=== PATIENT | female | born 1955 | race Two or more races ===

== ENCOUNTER 2025-04-28 11:20 | Emergency (ER) | payer MEDICARE, SELFPAY ==
[2025-04-28 11:36] VITALS: BP 107/71; PULSE 68; RESP 17; TEMP 36.6; O2SAT 96; BMI 32.9
--- NOTE | 2025-04-28 11:39 | PD.EDADULT ---
ED General RME/HPI General Chief complaint: General Adult/Misc Complain Stated complaint: R/O DVT R) LEG; SENT BY [facility] Time Seen by Provider: 04/28/25 11:39 Arrival date/time: 04/28/25 11:20 Related Data Previous Rx's ?Medication ?Instructions ?Recorded meloxicam 7.5 mg tablet 7.5 mg PO QDAY #10 tabs 09/09/24 Allergies Allergy/AdvReac Type Severity Reaction Status Date / Time No Known Allergies Allergy Verified 04/28/25 11:24 Course Vital Signs Vital signs: Vital Signs Temperature 97.8 F 04/28/25 11:36 Pulse Rate 68 04/28/25 11:36 Respiratory Rate 17 04/28/25 11:36 Blood Pressure 107/71 04/28/25 11:36 Pulse Oximetry (%) 96 04/28/25 11:36 Oxygen Delivery Method Room Air 04/28/25 11:36 Discharge Plan Prescriptions/Referrals Prescriptions/Med Rec: No Action meloxicam 7.5 mg tablet 7.5 mg PO QDAY Qty: 10 0RF Patient/Caregiver Discharge Instructions Print Language: Lithuanian
--- NOTE | 2025-04-28 11:41 | XR_ITS ---
Examination: Duplex scan of the lower extremity, unilateral right complete Date and time of exam: April 28, 2025 1222 hours INDICATIONS: Status post venous ablation April 21, 2025 followed by a leg swelling and burning sensation 3 days Technique: Duplex scan of the extremity veins using B-mode/grayscale imaging and Doppler spectral analysis and color flow Attention is directed to internal echogenicity, compression and augmentation involving these veins, color flow assessment, spectral analysis Findings: Major deep venous structures in the extremity demonstrate normal course and caliber. There is no evidence of deep vein thrombosis. Normal color flow and spectral analysis Positive for deep vein thrombus in the superficial greater saphenous vein Impression: Negative for DVT.. Positive for deep vein thrombus in the superficial greater saphenous vein
--- NOTE | 2025-04-28 13:08 | PD.EDRME ---
Rapid Medical Screening Exam RME Arrival date/time: 04/28/25 11:20 69-year-old female presents to the emerged part today for concerns for right lower extremity pain and swelling patient was sent by specialist to rule out DVT Chief Complaint: General Adult/Misc Complain Time Seen by Provider: 04/28/25 11:39 Vital signs: Vital Signs Temperature 97.8 F 04/28/25 11:36 Pulse Rate 68 04/28/25 11:36 Respiratory Rate 17 04/28/25 11:36 Blood Pressure 107/71 04/28/25 11:36 Pulse Oximetry (%) 96 04/28/25 11:36 Oxygen Delivery Method Room Air 04/28/25 11:36
[2025-04-28 13:40] LABS: Basophils % (Auto) 0 % (0-2.5); Eosinophils # (Auto) 0.2 Thou/mm3 (0.0-0.5); Eosinophils % (Auto) 3 % (0-10); Hematocrit 39.1 % (36.0-46.0); Hemoglobin 12.7 g/dL (12.0-16.0); Immature Granulocytes % (Auto) 0 % (0-0); Immature Granulocytes Auto 0.02 Thou/mm3 (0.00-0.00); Lymphocytes % (Auto) 27 % (10-50); Mean Corpuscular HGB Conc 32.5 g/dl (31.0-37.0); Mean Corpuscular Hemoglobin 28.5 pg (25.0-35.0); Mean Corpuscular Volume 88 fL (80-100); Monocytes # (Auto) 0.5 Thou/mm3 (0.0-0.8); Monocytes % (Auto) 6 % (0-12); Neutrophils # (Auto) 4.8 Thou/mm3 (1.8-7.7); Neutrophils % (Auto) 63 % (37-80); Nucleated Red Blood Cell % 0 /100 WBC (0); Platelet Count 162 Thou/mm3 (140-440); RDW Standard Deviation 41.9 fL (36.4-46.3); Red Blood Count 4.46 Miln/mm3 (4.00-5.20); White Blood Count 7.5 Thou/mm3 (3.6-11.0)
[2025-04-28 14:00] LABS: Partial Thromboplastin Time 25.4 Seconds (22.0-36.0)
[2025-04-28 14:01] LABS: Alanine Aminotransferase 21 U/L (10-49); Albumin, Serum 4.1 gm/dL (3.4-4.8); Albumin/Globulin Ratio 1.5 (1.2-2.2); Alkaline Phosphatase 77 U/L (46-116); Anion Gap 8 (7-16); Aspartate Amino Transferase 22 U/L (0-34); BUN/Creatinine Ratio 19 Ratio (12-20); Bilirubin,Total 0.5 mg/dL (0.3-1.2); Blood Urea Nitrogen 21 mg/dL (9-23); Carbon Dioxide 27.7 mMol/L (20.0-31.0); Chloride 104 mMol/L (98-107); Creatinine (Component) 1.1 mg/dL (0.6-1.3); Estimated Creatinine Clearance 47.8 mL/min (>60); Globulin 2.7 gm/dL (2.3-3.5); Glucose 104 mg/dL (74-106); Osmolality,Calculated 282 (275-295); Potassium 4.2 mMol/L (3.4-5.1); Sodium 140 mMol/L (136-145); Total Protein 6.8 gm/dL (5.7-8.2); eGFR 54 See Note
[2025-04-28] MEDS: APIXABAN 2.5 MG TABLET 10 MG PO (14:38)
--- NOTE | 2025-04-28 15:09 | EDNOTE_ITS ---
ED General RME/HPI General Chief complaint: General Adult/Misc Complain Stated complaint: R/O DVT R) LEG; SENT BY [facility] Time Seen by Provider: 04/28/25 11:39 Arrival date/time: 04/28/25 11:20 Limitations: no limitations RME / HPI RME / HPI narrative: 04/28/25 11:20 69-year-old female presents to the emerged part today for concerns for right lower extremity pain and swelling patient was sent by specialist to rule out DVT DR. PALMA MAIN ED EVALUATION: 69 year old female with past medical history significant for status post vein stripping 5-6 days ago presents to the Emergency Department with complaint of right inner thigh bruising and tenderness worsening for a couple of days. She has some bruising after right leg vein stripping but she it has gotten worse wit h increased pain. No other symptoms reported at this time. Related Data Previous Rx's ?Medication ?Instructions ?Recorded meloxicam 7.5 mg tablet 7.5 mg PO QDAY #10 tabs 11/0 02/27 apixaban 5 mg tablet 5 mg PO BID dvt #10 tabs Allergies Allergy/AdvReac Type Severity Reaction Status Date / Time No Known Allergies Allergy Verified 04/28/25 11:24 Review of Systems Review of Systems Systems Reviewed: All systems reviewed, normal except as documented Past Medical History Past Medical History CARDIAC: Negative Cardiac Disorders RESPIRATORY: Negative Asthma GENITOURINARY: Negative Renal Disease ENDOCRINE: Positive Diabetes Mellitus Type 2 HEMATOLOGIC: Negative Sickle Cell Disease Social History SMOKING STATUS: Never smoker ED Exam General Limitations: Present no limitations General appearance: Present alert and in no apparent distress Head Head exam: Present atraumatic, normocephalic and normal inspection Eye Eye exam: Present normal appearance, PERRL and EOMI ENT ENT exam: Present normal exam, normal oropharynx and mucous membranes moist Neck Neck exam: Present normal inspection, full ROM and trachea midline Chest Chest inspection: Present normal inspection and symmetric chest wall rise Respiratory Respiratory exam: Present normal lung sounds bilaterally Cardiovascular Cardiovascular exam: Present regular rate, normal rhythm and normal heart sounds Abdominal Exam Abdominal exam: Present soft and normal bowel sounds Extremities Exam Extremities exam: Present full ROM and other (ecchymosis of the right inner thigh measuring 4x7 cm, no erythema and no palpable thrombosis) Back Exam Back exam: Present normal inspection and full ROM Neurological Exam Neurological exam: Present alert, oriented X3 and CN II-XII intact Psychiatric Psychiatric exam: Present normal affect and normal mood Skin Skin exam: Present warm and dry Course Quality Measures none Orders Category Date Time Status US venous doppler LE RT Stat Exams 04/28/25 11:41 Completed CBC Stat Lab 04/28/25 13:23 Completed Comprehensive Metabolic Panel Stat Lab 04/28/25 13:23 Completed Partial Thromboplastin Time Stat Lab 04/28/25 13:23 Completed Prothrombin Time with INR Stat Lab 04/28/25 13:23 Completed Apixaban [Eliquis] Med 04/28/25 13:48 Discontinued 10 mg PO X1 ONE Vital Signs Vital signs: Vital Signs Temperature 97.8 F 04/28/25 11:36 Pulse Rate 68 04/28/25 11:36 Respiratory Rate 17 04/28/25 11:36 Blood Pressure 107/71 04/28/25 11:36 Pulse Oximetry (%) 96 04/28/25 11:36 Oxygen Delivery Method Room Air 04/28/25 11:36 Discharge Plan Plan Patient Disposition: HOME (Self Care) Patient condition on transfer: Stable Prescriptions/Referrals Prescriptions/Med Rec: New apixaban 5 mg tablet 5 mg PO BID MDD 2 Qty: 10 0RF No Action meloxicam 7.5 mg tablet 7.5 mg PO QDAY Qty: 10 0RF Referrals: Denis Prabhakar PA-C [Primary Care Provider] - In 1 week Problem List Clinical Impression: Status post vein stripping Patient/Caregiver Discharge Instructions Additional Instructions: Please follow-up with your primary care physician within 2-3 days. Return to the Emergency Department as needed. Tanisha un seguimiento con humphries m?dico de cabecera dentro de 2-3 cruz. Regrese al Departamento de Emergencias seg?n sea necesario. Print Language: Kazakh Stand Alone Forms: Cheri Award Info., Patient Portal Info Letter MDM Narrative MDM hospital course: I, Gabriella Lewis am scribing for and in the presence of Dr. Palma. Clinical Information Provided by patient Medical Records Reviewed [facility] Meds/Rx Considered, not Ordered None Labs/Rad/Tests considered, not Ordered None Chronic Illness/Social Conditions Add or document further as needed: status post vein stripping 5-6 days ago EKG EKG not done Imaging Radiology reports / interpretation(s): Procedure(s): US venous doppler LE RT Accession Number(s): [id number] cc: Donny (ELIZABETH),Demarcus JOHNSON; Henri Jordan MD~ Examination: Duplex scan of the lower extremity, unilateral right complete Date and time of exam: April 28, 2025 1222 hours INDICATIONS: Status post venous ablation April 21, 2025 followed by a leg swelling and burning sensation 3 days Technique: Duplex scan of the extremity veins using B-mode/grayscale imaging and Doppler spectral analysis and color flow Attention is directed to internal echogenicity, compression and augmentation involving these veins, color flow assessment, spectral analysis Findings: Major deep venous structures in the extremity demonstrate normal course and caliber. There is no evidence of deep vein thrombosis. Normal color flow and spectral analysis Positive for deep vein thrombus in the superficial greater saphenous vein Impression: Negative for DVT.. Positive for deep vein thrombus in the superficial greater saphenous vein Dictated By: Henri Jordan MD Medication Administration(s) Medication Administration History Discontinued Medications Apixaban (Apixaban 2.5 Mg Tablet) 10 mg PO X1 ONE Stop: 04/28/25 13:49 Last Admin: 04/28/25 14:38 Dose: 10 mg Documented By: EDISON Diagnosis Differential diagnosis: DVT, cellulitis, bruising Most likely dx, and/or detailed dx discussion: status post vein stripping Dispositon Disposition: Discharge Home
[2025-04-28 15:30] VITALS: BP 142/82; PULSE 67; RESP 12; TEMP 36.7; O2SAT 95
[2025-04-28 15:32] VITALS: BP 142/82; PULSE 67; RESP 12; TEMP 36.7; O2SAT 95
== END 2025-04-28 15:31 | disposition home or self-care (01) ==
PROVIDERS: Nurse Practitioner Primary Care; Emergency Provider Family Medicine; PCP Physician Assistant Medical
DX: I82.811 Embolism and thrombosis of superficial veins of right lower extremity (principal); Z98.890 Other specified postprocedural states
CPT/HCPCS: 36415; 80053; 85025; 85610; 85730; 93971; 99284; A9270